=== PATIENT | male | born 1990 | race African-American/Black ===

== ENCOUNTER 2016-07-30 14:20 | Emergency (ER) | payer SELFPAY ==
[~2016-07-30 14:20] MED LIST: GUAIFENESIN400 M1 PO; KEFLEX500 MG PO; ULTRAM PO; VOLTAREN75 MG PO
== END 2016-07-30 15:29 | disposition home or self-care (01) ==
LOC: CED 14:20 → CFTX 14:20
DX: K08.89 Other specified disorders of teeth and supporting structures (principal)
CPT/HCPCS: 96372; 99283; J1885